=== PATIENT | female | born 1935 | race Caucasian/White ===

== ENCOUNTER 2019-02-15 10:14 | Inpatient (IN) | payer MEDICARE ==
[~2019-02-15] VITALS: Ht 167.6 cm; Wt 62.4 kg
--- NOTE | ~2019-02-15 | CON ---
[address] [address] CONSULTATION Name: JEAN MARIE PASTOR Room: [address] IN .R.#: [id number] Admission: 02/15/19 Attend Phys: Starla Ny Discharge: Date of : 39 Report #: [id number] THIS REPORT FOR: //name// CC: Pedrito Keys DATE OF SERVICE: 02/15/2019 HISTORY OF PRESENT ILLNESS: This is an 84-year-old female patient who was evaluated by me for stroke-like symptoms. I talked to the family in detail. I talked to Dr. Coon, the Emergency Room physician. This patient apparently has dementia. She is not able to remember the dates, but usually remember the close relatives. She never had any stroke in the past. She had right-sided weakness and some difficulty with speech and on examination by Emergency Room physician, she was found to have some ataxia on the left side. By the time I saw this patient, this patient has returned to the baseline and she was not having any further deficit. She was still confused and her memory was poor, but she was not having any hemiplegia. REVIEW OF SYSTEMS: A 14-point review of system was carried out. She has a prior history of dementia. She had a hip replacement. She had a back surgery. She had a shoulder surgery. She has a history of hypertension. She has a history of hypothyroidism. She has a history of dyslipidemia. She was not complaining of any new eye, ENT, cardiac, respiratory, GI, , constitutional, dermatological, hematological, psychiatric, throat or allergic symptom associated with present symptomatology. PAST MEDICAL HISTORY: Positive for dementia. FAMILY HISTORY: Negative for any early age dementia. SOCIAL HISTORY: She does not drink any alcohol or smoke. PHYSICAL EXAMINATION: Indicates she is alert. She is responsive. She does not know what month it is. She was able to recognize her children. Her speech looks intact. She has a very poor memory and fund of knowledge, but that is her baseline. Cranial nerve examination 2-12 does not appear to be showing any definite abnormality. Her strength, sensation, reflexes and tones were symmetrical. There is no meningeal sign in this patient. There is no carotid bruit. I could not look at the patient's fundus. Cardiac examination appears mostly unremarkable. No respiratory difficulty or rhonchi were noticed. Pulses are somewhat difficult to palpate. She is a moderately built individual. She has no thyroid mass. The patient's pulse oximetry was normal. IMPRESSION: This patient appeared to have transient ischemic attack. It does not look like there is any residual deficit in this patient. [place] [address] CONSULTATION Name: JEAN MARIE PASTOR Room: [address] IN [facility]#: [id number] Admission: 02/15/19 Attend Phys: Starla Ny Discharge: Date of : 39 Report #: [id number] dementia that makes it difficult to evaluate the patient. I discussed the situation with the patient and the family. I discussed the option of giving TPA. This patient has no residual deficit. After discussing all the options with the family, especially in relation to TPA, the plan was to get a stat MRI and MRA done. If that shows some abnormality, we will proceed accordingly. If that is okay, then I think we can continue aspirin and see how she does. All of it was discussed with the family and they want to follow this plan and we will do that. Thank you very much for this referral and if you have any question, please feel free to contact me. By: [id number] Ortiz MD /nt
--- NOTE | ~2019-02-15 | EEG ---
[address] [address] EEG STUDY REPORT Name: JEAN MARIE PASTOR [place] Room: [address]#: [id number] Admission: 02/15/19 Attend Phys: Starla Ny Discharge: 02/16/19 Date of : 39 Report #: [id number] THIS REPORT FOR: //name// CC: Pedrito Keys DATE OF SERVICE: 02/16/2019 This patient is being evaluated for an episode of altered mental status. No cause was found on imaging study. The patient's background activity is about 8-9 Hz and 30 microvolt. The patient became drowsy and that is associated with bilateral slowing and vertex sharp waves. Photic stimulation was unremarkable. Throughout the record, no active epileptiform activity was noticed. IMPRESSION: This patient's EEG is intermixed with theta range slowing on both sides. That is a nonspecific abnormality, which can occur with dementia, encephalopathy, effect of psychotropic medication, etc. Clinical correlation is recommended. By: [id number] Ortiz MD /nt
[~2019-02-15 10:14] MED LIST: AMIGESIC750 MG PO; ASPIRIN81 M2 PO; CALCIUM 500 WI1 EAC4 PO; CALCIUM 600 +1 EAC7 PO; CARVEDILOL12.5 MG PO; COREG CR20 MG PO; FISH OIL 1,0001 EAC5 PO; HYDROCODON-ACE1 EACH PO; LEVOTHYROXINE0.2 M1 PO; LIPITOR40 MG PO; LIPITOR80 MG PO; LISINOPRIL20 MG PO; LISINOPRIL40 MG; MELOXICAM7.5 MG PO; MOBIC7.5 MG PO; SUPER B COMPLE1 EAC2 PO
[2019-02-15 10:34] LABS: ABSOLUTE LYMPHOCYTES 0.8 thou/uL (0.8-5.3); ABSOLUTE MONOCYTES 0.5 thou/uL (0.0-1.2); ABSOLUTE NEUTROPHILS 3.1 thou/uL (1.6-8.1); BASOPHILS 0.7 %; EOSINOPHILS 0.7 %; HEMATOCRIT 40.7 % (37.0-47.0); HEMOGLOBIN 13.5 gm/dL (12.0-15.0); LYMPHOCYTES 18.1 %; MCH 30.5 pg (26.0-34.0); MCHC 33.3 g/dL (28.0-37.0); MCV 91.6 fL (80.0-100.0); MONOCYTES 11.5 %; NUCLEATED RBCS 0 /100WBC; PLATELET COUNT* 163 thou/uL (150-400); RBC 4.44 mil/uL (4.20-5.00); RDW-CV 13.7 % (10.5-14.5); WBC 4.5 thou/uL (4.0-11.0)
[2019-02-15] MEDS ORDERED: ARICEPT10 M1 PO (10:36)
[2019-02-15] MEDS ORDERED: NAMENDA XR28 MG PO (10:37)
[2019-02-15] MEDS ORDERED: MYRBETRIQ50 MG PO (10:37)
[2019-02-15] MEDS ORDERED: TRAMADOL 50 MG50 MG PO (10:38)
[2019-02-15] MEDS ORDERED: SUPER THERAVIT1 EACH PO (10:39)
[2019-02-15] MEDS ORDERED: MICARDIS 80 MG80 MG PO (10:39)
[2019-02-15] MEDS ORDERED: MELOXICAM15 MG PO (10:39)
[2019-02-15] MEDS ORDERED: LEVO-T75 MCG PO (10:40)
[2019-02-15] MEDS ORDERED: PROCTOCREAM-HC30 GM TRANSDERM (10:41)
[2019-02-15 10:55] LABS: APTT 24.7 Seconds (25.0-31.3); INR 1.1; PROTIME 10.8 Seconds (9.20-11.50)
[2019-02-15 11:01] LABS: CALCIUM 8.5 mg/dL (8.5-10.1); CREATININE 1.2 mg/dL (0.6-1.3); POTASSIUM 3.9 mmol/L (3.5-5.1)
[2019-02-15 11:06] LABS: ALBUMIN 3.7 g/dL (3.4-5.0); TOTAL BILIRUBIN 0.5 mg/dL (<0.1-1.0); TOTAL PROTEIN 6.5 g/dL (6.4-8.2)
[2019-02-15 14:13] LABS: CHOLESTEROL 270 mg/dL (<200); HDL CHOLESTEROL 84 mg/dL (>40); LDL CHOLESTEROL 170 mg/dL (<100); TC:HDL 3.2 Ratio (Not establshd); TRIGLYCERIDE 84 mg/dL (<150); VLDL 17 mg/dL (<40)
[2019-02-15 14:14] LABS: SERUM ASSESSMENT Clear
[2019-02-15 14:38] VITALS: BP 163/81
[2019-02-15 15:00] VITALS: BP 196/96
[2019-02-15 15:30] VITALS: BP 178/80
--- NOTE | 2019-02-15 15:54 | EKG ---
[place] [address] ELECTROCARDIOGRAM REPORT Name: JEAN MARIE PASTOR Room: [address] ADM IN .R.#: [id number] Admission: 02/15/19 Attend Phys: Starla Ny Discharge: Date of : 39 Report #: [id number] THIS REPORT FOR: //name// [facility] ED Test Date: 2019-02-15 Test Time: 10:46:08 Pat Name: JEAN MARIE PASTOR Department: Room: [facility] Gender: F [employer] Operations Specialist: : 1935 Requested By: Manuel Coon Order Number: [id number] MD: Omari Lazo Measurements Intervals [place] Rate: 56 P: -17 [place]: 218 QRS: -33 QRSD: 98 T: 82 QT: 489 QTc: 473 Interpretive Statements Sinus bradycardia Borderline prolonged [place] interval Left axis deviation Nonspecific T abnormalities, lateral leads Compared to ECG 11/26/2012 09:05:23 T-wave abnormality now present Electronically Signed On 02-15-2019 15:54:05 COLOR SPRAYER by Omari Lazo [email or web address] <ELECTRONICALLY SIGNED> By: Omari Lazo MD, FACC 02/15/19 1554 1046 1046 Omari Lazo MD, [facility] /EPI
[2019-02-15 16:00] VITALS: BP 197/90
[2019-02-15 20:00] VITALS: BP 192/89
[2019-02-16] VITALS: BP 135/76
[2019-02-16 04:00] VITALS: BP 163/77
[2019-02-16 07:00] VITALS: BP 153/88
[2019-02-16 07:12] LABS: GLYCOHEMOGLOBIN (HGB A1C) 5.3 % (4.8-5.6)
[2019-02-16 12:14] VITALS: BP 113/67
[2019-02-16] MEDS ORDERED: ASA81BEC PO (15:20)
[2019-02-16] MEDS ORDERED: COLACE100 MG PO (15:24)
[2019-02-16] MEDS ORDERED: MINOCYCLINE HC100 M2 PO (15:36)
[2019-02-16] MEDS ORDERED: LIPITOR 10 MG10 M1 PO (15:41)
[2019-02-16] MEDS ORDERED: PLAVIX 75 MG TA75 MG PO (15:42)
[2019-02-16 15:43] VITALS: BP 113/67
--- NOTE | 2019-02-16 17:01 | 2DMMODE ---
[place] [address] 2 D/M-MODE ECHOCARDIOGRAM Name: JEAN MARIE PASTOR Room: [address] IN [facility]#: [id number] Admission: 02/15/19 Attend Phys: Fernando Keys Discharge: 02/16/19 Date of : 39 Date of Service: 02/16/19 1701 Report #: [id number] THIS REPORT FOR: //name// APPROVED REPORT Study performed: 02/16/2019 15:26:21 EXAM: Comprehensive 2D, Doppler, and color-flow Echocardiogram Patient Location: In-Patient Room #: 203 Status: routine BSA: 1.70 HR: 60 bpm BP: 153/88 mmHg Rhythm: NSR Other Information Study Quality: Good Indications CVA/TIA Sepsis Echo Enhancing Agent Indication: Rule out Shunt Agent(s) / Amount(s) Used: Agitated Saline 10 cc 2D Dimensions IVSd: 11.28 (7-11mm) LVOT Diam: 18.95 (18-24mm) LVDd: 41.34 mm PWd: 10.57 (7-11mm) Ascending Ao: 32.83 (22-36mm) LVDs: 26.79 (25-40mm) Aortic Root: 32.63 mm Volumes Left Atrial Volume (Systole) LA ESV Index: 40.60 mL/m2 Aortic Valve AoV Peak Benoit.: 1.31 m/s AO Peak Gr.: 6.84 mmHg LVOT Max P.80 mmHg AO Mean Gr.: 3.82 mmHg LVOT Mean P.29 mmHg LVOT Max V: 0.84 m/s AO V2 VTI: 27.51 cm LVOT Mean V: 0.51 m/s JEANINE (VTI): 2.06 cm2 LVOT V1 VTI: 20.12 [place] [address] 2 D/M-MODE ECHOCARDIOGRAM Name: JEAN MARIE PASTOR Room: [address] IN .R.#: [id number] Admission: 02/15/19 Attend Phys: Fernando Keys Discharge: 02/16/19 Date of : 39 Date of Service: 02/16/19 1701 Report #: [id number] AI [place]: 2.71 m/s2 AI PHT: 535.81 ms Mitral Valve E/A Ratio: 0.79 MV Decel. Time: 314.94 ms MV E Max Benoit.: 0.57 m/s MV PHT: 91.33 ms MVA (PHT): 2.41 cm2 TDI E/Lateral E': 8.14 E/Medial E': 8.14 Medial E' Benoit.: 0.07 m/s Lateral E' Benoit.: 0.07 m/s Pulmonary Valve PV Peak Benoit.: 0.83 m/s PV Peak Gr.: 2.76 mmHg Tricuspid Valve RAP Estimate: 5.00 mmHg TR Peak Gr.: 20.01 mmHg RVSP: 25.00 mmHg PA Pressure: 25.00 mmHg Left Ventricle The left ventricle is normal size. There is normal LV segmental wall motion. There is normal left ventricular wall thickness. Left ventricular systolic function is normal. The left ventricular ejection fraction is within the normal range. LVEF is 60-65%. Grade I - abnormal relaxation pattern. Right Ventricle The right ventricle is normal size. The right ventricular systolic function is normal. Atria Left atrium is mildly dilated. Interatrial septum is intact without evidence of ASD or PFO. The right atrium size is normal. Aortic Valve The aortic valve is normal in structure. Mild aortic regurgitation. There is no aortic valvular stenosis. Mitral Valve The mitral valve is normal in structure. Mild mitral regurgitation. No evidence [place] [address] 2 D/M-MODE ECHOCARDIOGRAM Name: JEAN MARIE PASTOR Room: [address] IN M.R.#: [id number] Admission: 02/15/19 Attend Phys: Fernando Keys Discharge: 02/16/19 Date of : 39 Date of Service: 02/16/19 1701 Report #: [id number] Tricuspid Valve The tricuspid valve is normal in structure. Mild tricuspid regurgitation. estimated pa pressure 30 mm Hg Pulmonic Valve The pulmonary valve is normal in structure. Mild pulmonic regurgitation. Great Vessels The aortic root is normal in size. IVC is normal in size and collapses >50% with inspiration. Pericardium There is no pericardial effusion. <Conclusion> LVEF is 60-65%. Left atrium is mildly dilated. Mild aortic regurgitation. Interatrial septum is intact without evidence of ASD or PFO. Mild mitral regurgitation. Mild tricuspid regurgitation. estimated pa pressure 30 mm Hg <ELECTRONICALLY SIGNED> By: Omari Lazo MD, FACC 02/16/191700 00 00 Omari Lazo MD, FACC /INF
== END 2019-02-16 16:58 | DRG 69 ==
LOC: M.ERS 10:14 → M.2W 11:24 → M.TBA-ER 11:24 → M.2W 14:49
PROVIDERS: Emergency Medicine Emergency Medical Services; ADMIT Internal Medicine
DX: G45.9 Transient cerebral ischemic attack, unspecified (principal); R56.9 Unspecified convulsions; I10 Essential (primary) hypertension; E03.9 Hypothyroidism, unspecified; E78.5 Hyperlipidemia, unspecified; E78.00 Pure hypercholesterolemia, unspecified; G30.9 Alzheimer's disease, unspecified; F02.80 Dementia in other diseases classified elsewhere, unspecified severity, without behavioral disturbance, psychotic disturbance, mood disturbance, and anxiety; Z96.649 Presence of unspecified artificial hip joint; Z79.899 Other long term (current) drug therapy; Z88.2 Allergy status to sulfonamides; Z88.0 Allergy status to penicillin; Z82.49 Family history of ischemic heart disease and other diseases of the circulatory system; Z83.3 Family history of diabetes mellitus; Z82.0 Family history of epilepsy and other diseases of the nervous system